=== PATIENT | male | born 1960 | race African-American/Black ===

== ENCOUNTER → 2017-06-02 | Outpatient (CLI) | payer BC ==
--- NOTE | 2017-06-02 12:12 | RAD ---
Exam: Right knee radiograph 06/02/2017 Indication: Right knee pain Comparison: None available Technique: 2 views of the right knee are provided. Note, images are incorrectly labeled left. Findings: There is no acute fracture or dislocation. There is no knee joint effusion. There is patellar enthesopathy. No joint space narrowing. No soft tissue swelling. No osseous erosion or soft tissue gas. Bone mineralization is within normal limits. Impression: No acute fracture or dislocation.
--- NOTE | 2017-06-02 13:09 | RAD ---
ADDENDUM Addendum: Addendum is being made as the technologist reports that the left knee was imaged and the images are correctly labeled as left. The order states left knee to be imaged. Therefore, examination should read left knee radiograph 06/02/2017. Technique should read 2 views of the left knee are provided. DICTATED AND SIGNED BY: KARTHIKEYAN NAIDU MD DATE: 06/02/17 1215 CC: SUNIL SCHULER Exam: Right knee radiograph 06/02/2017 Indication: Right knee pain Comparison: None available Technique: 2 views of the right knee are provided. Note, images are incorrectly labeled left. Findings: There is no acute fracture or dislocation. There is no knee joint effusion. There is patellar enthesopathy. No joint space narrowing. No soft tissue swelling. No osseous erosion or soft tissue gas. Bone mineralization is within normal limits. Impression: No acute fracture or dislocation. DICTATED AND SIGNED BY: KARTHIKEYAN NAIDU MD DATE: 06/02/17 1207 CC: SUNIL SCHULER [facility]
== END | disposition home or self-care (01) ==
LOC: PMG 11:33
PROVIDERS: ATTEND Physician Assistant
DX: M25.562 Pain in left knee (principal); M25.561 Pain in right knee
CPT/HCPCS: 73560

== ENCOUNTER → 2017-07-14 | Outpatient (CLI) | payer BC ==
--- NOTE | 2017-07-14 13:22 | RAD ---
Supine and upright AP views abdomen 07/14/2017 Clinical indication: Abdominal pain. Comparison: Abdominal radiograph 07/10/2006. Findings: There is a nonobstructive bowel gas pattern. No evidence of pneumoperitoneum or portal venous gas. There may be an old nondisplaced fracture of the left superior acetabulum, unchanged since the 2006 examination. Impression: No radiographic evidence of bowel obstruction or pneumoperitoneum.
== END | disposition home or self-care (01) ==
LOC: PMG 09:29
PROVIDERS: ATTEND Physician Assistant
DX: R10.11 Right upper quadrant pain (principal)
CPT/HCPCS: 74021

== ENCOUNTER → 2017-09-09 | Outpatient (CLI) | payer BC ==
--- NOTE | 2017-09-09 16:34 | RAD ---
Right rib series with single view chest 09/09/2017 3:59 PM INDICATION: Pain and right scapular area for one month. COMPARISON: None available TECHNIQUE: Frontal view of the chest is provided. 3 dedicated views of the right ribs are provided. FINDINGS: The cardiomediastinal silhouette is within normal limits. There are no pleural effusions. There is no pulmonary vascular congestion. There is no pneumothorax. The lungs are clear. No significant osseous abnormality is identified. There are 12 paired ribs. No acutely displaced right-sided rib fracture is visualized. IMPRESSION: No acute cardiopulmonary process. There is no acutely displaced right-sided rib fracture. Electronically signed by: Kamini Avila MD (09/09/2017 4:30 PM) [facility]
== END | disposition home or self-care (01) ==
LOC: PMG 15:43
PROVIDERS: ATTEND Physician Assistant
DX: S29.019A Strain of muscle and tendon of unspecified wall of thorax, initial encounter (principal); X58.XXXA Exposure to other specified factors, initial encounter; Y93.89 Activity, other specified; Y92.89 Other specified places as the place of occurrence of the external cause; Y99.8 Other external cause status
CPT/HCPCS: 71101

== ENCOUNTER → 2018-03-16 | Outpatient (CLI) | payer BC ==
--- NOTE | 2018-03-16 12:05 | CARD ---
MR#: [id number] Date of Study: 03/16/2018 Ordering Physician: SABINE LI, Referring Physician: SABINE LI Tech: Susan Shaw RDCS APPROVED REPORT EXAM: Two-dimensional and M-mode echocardiogram with Doppler and color Doppler. Other Information Quality : Fair Technically limited study due to body habitus. INDICATION Hypertension/HCVD 2D DIMENSIONS RVDd3.4 (2.9-3.5cm)Left Atrium(2D)5.0 (1.6-4.0cm) IVSd1.4 (0.7-1.1cm)Aortic Root(2D)3.4 (2.0-3.7cm) LVDd5.5 (3.9-5.9cm)LVOT Diameter2.5 (1.8-2.4cm) PWd2.0 (0.7-1.1cm)LVDs4.3 (2.5-4.0cm) FS (%) 22.2 %SV64.4 ml LVEF(%)45.2 (>50%) Aortic Valve AoV Peak Christian.135.7cm/sAoV VTI24.1cm AO Peak GR.7.4mmHgLVOT Peak Christian.87.9cm/s LVOT VTI 16.23cmAO Mean GR.4mmHg DELICIA (VMAX)3.75re3TZF (VTI)3.19cm2 Mitral Valve MV E Euujoevx06.1cm/sMV DECEL JNAB137ja MV A Hwpncnqf48.5cm/sE/A Ratio0.8 Pulmonary Vein S1 Ldtunxsl13.4cm/sD2 Lieaoxtu62.7cm/s LEFT VENTRICLE The left ventricle is normal size. There is mild to moderate concentric left ventricular hypertrophy. The left ventricular systolic function is normal and the ejection fraction is within normal range. E F 55% There is grossly normal. Tissue Doppler imaging reveals mild left ventricular diastolic dysfunc tion. RIGHT VENTRICLE The right ventricle is normal size. The right ventricular systolic function is normal. ATRIA The left atrium is moderately dilated. The right atrium size is normal. The interatrial septum is int act with no evidence for an atrial septal defect or patent foramen ovale as noted on 2-D or Doppler i keren. AORTIC VALVE The aortic valve is normal in structure and function. Doppler and Color Flow revealed no significant aortic regurgitation. There is no significant aortic valvular stenosis. MITRAL VALVE The mitral valve is normal in structure and function. There is no evidence of mitral valve prolapse. There is no mitral valve stenosis. Doppler and Color Flow revealed no mitral valve regurgitation note d. TRICUSPID VALVE The tricuspid valve is normal in structure and function. Doppler and Color Flow revealed no tricuspid valve regurgitation noted. There is no tricuspid valve stenosis. PULMONIC VALVE The pulmonic valve is not well visualized. Doppler and Color Flow revealed no pulmonic valvular regur gitation. There is no pulmonic valvular stenosis. GREAT VESSELS The aortic root is normal in size. The ascending aorta is mildly dilated at 3.7 cm. The IVC is normal in size and collapses >50% with inspiration. PERICARDIAL EFFUSION There is no evidence of significant pericardial effusion. Critical Notification Critical Value: No <Conclusion> The left ventricular systolic function is normal and the ejection fraction is within normal range. EF 55% There is normal LV segmental wall motion. The ascending aorta is mildly dilated at 3.7 cm. Signed by : Cristiano Rosado, Electronically Approved : 03/16/2018 12:03:54
== END | disposition home or self-care (01) ==
LOC: ECHO 10:27
PROVIDERS: ATTEND Physician Assistant Medical
DX: I11.9 Hypertensive heart disease without heart failure (principal)
CPT/HCPCS: 93306

== ENCOUNTER → 2018-03-16 | Outpatient (CLI) | payer BC ==
--- NOTE | 2018-03-16 18:16 | RAD ---
CHEST PA LATERAL History: SOA. Comparison: September 09, 2017 Heart size: Enlarged, stable. Bebe/mediastinum: Aorta mildly tortuous, appears similar. Lungs: No focal airspace consolidation. Pleura: No evidence of pleural effusion. Pneumothorax: None visualized Bones: Regional skeleton appears grossly intact. Miscellaneous: None Impression: No acute infiltrate identified. Electronically signed by: Eric Avilez MD (03/16/2018 6:12 PM) [id number]
== END | disposition home or self-care (01) ==
LOC: PMG 14:22
PROVIDERS: ATTEND Physician Assistant
DX: I51.7 Cardiomegaly (principal)
CPT/HCPCS: 71046

== ENCOUNTER → 2019-07-14 | Outpatient (CLI) | payer BC ==
--- NOTE | 2019-07-14 10:11 | RAD ---
LEFT FEMUR XRAY INDICATION: Left leg pain COMPARISON: None. FINDINGS: Upper femoral radiographs are underexposed limiting evaluation for fine osseous detail. No displaced fracture or malalignment. Mild right hip arthrosis. Well-corticated ossific density adjacent to the superior, lateral left acetabulum may relate to remote injury or degenerative changes. Mild knee tricompartmental arthrosis. Patellar enthesophytes. Bony mineralization is normal for the patient's age. No significant soft tissue abnormality. No radiopaque foreign body. IMPRESSION: No displaced fracture or malalignment. Electronically signed by: Shayan Krishna MD (07/14/2019 10:08 AM) [id number]
== END ==
LOC: PMG 09:32
PROVIDERS: ATTEND Physician Assistant
DX: M79.652 Pain in left thigh (principal); M17.12 Unilateral primary osteoarthritis, left knee; M16.11 Unilateral primary osteoarthritis, right hip
CPT/HCPCS: 73552

== ENCOUNTER 2020-10-09 09:06 | Emergency (ER) | payer BC ==
[~2020-10-09] VITALS: Ht 180.3 cm; Wt 133.0 kg
[2020-10-09] MEDS ORDERED: DEXAMETHASONE SOD PHOS 10 MG/ML VIAL. IVP ONE (09:30)
[2020-10-09] MEDS ORDERED: KETOROLAC 15 MG/ML VIAL. IVP ONE (09:30)
[2020-10-09] MEDS ORDERED: LABETALOL 20 MG/4 ML DISP.SYRIN. IVP ONE (09:30)
[2020-10-09 10:02] LABS: BASO # 0.1 x10^3/uL (0.0-0.2); BASO % 2 % (0-3); EOS # 0.1 x10^3/uL (0.0-0.7); EOS % 2 % (0-3); HEMATOCRIT 44.9 % (39.0-53.0); LYMPH # 2.5 x10^3/uL (1.0-4.8); LYMPH % 42 % (24-48); MEAN CORPUSCULAR HEMOGLOBIN 33 pg (25-35); MEAN CORPUSCULAR HGB CONC 34 g/dL (31-37); MEAN CORPUSCULAR VOLUME 97 fL (79-100); MONO # 0.4 x10^3/uL (0.0-1.1); MONO % 7 % (0-9); NEUT # 2.8 x10^3uL (1.8-7.7); NEUT % 47 % (31-73); PLATELET COUNT 196 x10^3/uL (140-400); RED BLOOD COUNT 4.64 x10^6/uL (4.30-5.70); RED CELL DISTRIBUTION WIDTH 12.7 % (11.5-14.5)
[2020-10-09 10:08] LABS: CREATININE 1.1 mg/dL (0.7-1.3); GFR 83.2; POTASSIUM 4.5 mmol/L (3.5-5.1)
[2020-10-09 10:14] LABS: ALBUMIN 4.1 g/dL (3.4-5.0); ALBUMIN/GLOBULIN RATIO 1.1 (1.0-1.7); TOTAL BILIRUBIN 1.1 mg/dL (0.2-1.0); URIC ACID 7.7 mg/dL (3.5-7.2)
--- NOTE | 2020-10-09 10:24 | RAD ---
EXAM: Left foot, 3 views. HISTORY: Pain. Gout. COMPARISON: None. FINDINGS: 3 views of the left foot are obtained. There is no acute fracture, dislocation or subluxati on. There is mild degenerative spurring involving the first metatarsal phalangeal joint. There is sli ght joint space narrowing involving the second through fourth distal tibial joints. No osseous erosio n or soft tissue calcification is seen. There is dorsal forefoot soft tissue swelling. There is a cor ticated ossicle along the anterior talus, likely due to sequela of remote injury. There is a tiny elza ntar spur. IMPRESSION: 1. No acute osseous finding. 2. Dorsal forefoot soft tissue swelling. Electronically signed by: Gerri Jones MD (10/09/2020 10:21 AM) [id number]
--- NOTE | 2020-10-09 10:37 | PHYS DOC ---
Past History Past Medical History: High Cholesterol, Hypertension Additional Past Medical Histor: gout Past Surgical History: No Surgical History Smoking: Non-smoker Alcohol Use: Occasionally Drug Use: None General Adult EDM: Chief Complaint: FOOT INJURY PAIN HPI: HPI: Patient is a 60 year old male who presents with left foot pain at first tarsal- metatarsal joint. Pain started a week ago after golfing. Pt reported joint was shiny and swollen but has since decreased. Sitting still improves pain. Nothing worsens. Pain 6/10 and is constant. Patient also presents with significantly elevated hypertension which was discovered upon visiting urgent care clinic for foot pain. Pt does have history of hypertension for the last year and a half, but has not been taking medication. Review of Systems: Review of Systems: Constitutional: Denies fever or chills Eyes: Denies redness or eye pain HENT: Denies nasal congestion or sore throat Respiratory: Denies cough or shortness of breath Cardiovascular: Denies chest pain or palpitations GI: Denies abdominal pain, nausea, or vomiting : Denies dysuria or hematuria Musculoskeletal: Denies back pain or joint pain Integument: Denies rash or skin lesions Neurologic: Denies headache, focal weakness or sensory changes Complete systems were reviewed and found to be within normal limits, except as documented in this note. Current Medications: Current Meds: Current Medications Medications (Trade) Dose Ordered Sig/Tan Start Time Stop Time Status Last Admin Dose Admin Dexamethasone Sodium Phosphate (Decadron) 10 mg 1X ONCE 10/09/20 09:30 10/09/20 09:31 DC Ketorolac Tromethamine (Toradol 15mg Vial) 15 mg 1X ONCE 10/09/20 09:30 10/09/20 09:31 DC Labetalol HCl (Normodyne) 20 mg 1X ONCE 10/09/20 09:30 10/09/20 09:31 DC Allergies: Allergies: Allergies Coded Allergies Type Severity Reaction Last Updated Verified No Known Drug Allergies 10/09/20 No Physical Exam: PE: Constitutional: Well developed, well nourished, no acute distress, non-toxic appearance HENT: Normocephalic, atraumatic Eyes: PERRL, EOMI, conjunctiva normal, no discharge Neck: Normal range of motion, no tenderness, supple Lungs & Thorax: No respiratory distress, equal chest rise and fall Cardiovascular: RRR, no murmurs Abdomen: Soft, no tenderness Skin: Warm, dry, no erythema, no rash Back: No tenderness, no CVA tenderness Extremities: ROM intact, 1+ edema b/l lower extremities, erythema and swelling on left first tarsal-metatarsal joint Neurologic: Alert and oriented X 3, normal motor function, normal sensory function, no focal deficits noted Psychologic: Affect normal, judgment normal Current Patient Data: Vital Signs: Vital Signs Date Time Temp Pulse Resp B/P (MAP) Pulse Ox O2 Delivery O2 Flow Rate FiO2 10/09/20 09:15 97.8 73 248/125 97 EKG: EKG: Time:9:43 Sinus rhythm at 68bpm LVH with repolarization abnormality, t wave inversion III and aVF and V6 QT: 390ms QTc: 419ms Radiology/Procedures: Radiology/Procedures: PROCEDURE: FOOT LEFT 3V EXAM: Left foot, 3 views. HISTORY: Pain. Gout. COMPARISON: None. FINDINGS: 3 views of the left foot are obtained. There is no acute fracture, dislocation or subluxation. There is mild degenerative spurring involving the first metatarsal phalangeal joint. There is slight joint space narrowing involving the second through fourth distal tibial joints. No osseous erosion or soft tissue calcification is seen. There is dorsal forefoot soft tissue swelling. There is a corticated ossicle along the anterior talus, likely due to sequela of remote injury. There is a tiny plantar spur. IMPRESSION: 1. No acute osseous finding. 2. Dorsal forefoot soft tissue swelling. Electronically signed by: Gerri Jones MD (10/09/2020 10:21 AM) [id number][] Heart Score: C/O Chest Pain: N/A Course & Med Decision Making: Course & Med Decision Making 60 yo male reported to urgent care clinic for foot pain due to PCP not having any appointments available. Urgent care discovered significantly elevated BP and sent pt to ED. Pt has history of gout. Onset of pain was after a round of golf wearing unlaced shoes a week ago. Pt reports erythema and swelling have improved since onset. Considered stress fracture and osteoarthritis for foot pain. Ordered XR for left foot. Imaging showed soft tissue swelling, osteoarthritis and no fractures. Ordered CBC w/diff and chemistry for HTN to rule out end organ damage. Labs showed elevated uric acid but no elevated indicators of end organ damage. Gave prescription for 14 day supply of amlodipine, valsartan/HCT, and carvedilol. Patient stable for discharge with outpatient follow-up with PCP. Discussed findings and plan with patient and spouse, who acknowledge understanding and agreement. Lucien Disclaimer: Lucien Disclaimer: This electronic medical record was generated, in whole or in part, using a voice recognition dictation system. Departure Departure: Impression: Primary Impression: Hypertensive urgency Additional Impression: Gout attack Qualified Codes: M10.9 - Gout, unspecified Disposition: HOME / SELF CARE / HOMELESS Condition: STABLE Referrals: SUNIL SCHULER (PCP) Patient Instructions: Gout, Aose-pi-Adfq, Hypertension, Qpbd-zy-Bvdo Additional Instructions: Use post op shoe for comfort. May also take over the counter Tylenol as needed for pain. Please call and make an appointment to follow with your provider regarding your prescription refills. Scripts Colchicine (COLCRYS) 0.6 Mg Tablet 1 TAB PO DAILY for gout pain, #10 TAB 0 Refills Prov: SABINO BURNS DO 10/09/20 Valsartan/Hydrochlorothiazide (DIOVAN HCT 320-25 MG TABLET) 1 Each Tablet 1 TAB PO DAILY for HTN, #14 TAB Prov: SABINO BURNS DO 10/09/20 Carvedilol (COREG ) 6.25 Mg Tablet 6.25 MG PO BIDWMEALS for CARDIAC, #28 TAB Prov: SABINO BURNS DO 10/09/20 Amlodipine Besylate (AMLODIPINE BESYLATE) 10 Mg Tablet 1 TAB PO DAILY for HTN, #14 TAB Prov: SABINO BURNS DO 10/09/20 Critical Care Time Critical care time was 30 minutes which includes time at bedside, spent in discussion of patient's care with specialists and/or family members, with interpretation of laboratory and/or radiological studies and is exclusive of procedures. SABINO BURNS DO Oct 09, 2020 10:37
[2020-10-09] MEDS ORDERED: AMLO-187 PO (10:41)
[2020-10-09] MEDS ORDERED: COLC0.6T34 PO (10:41)
[2020-10-09] MEDS ORDERED: CARV6.25 PO (10:41)
[2020-10-09] MEDS ORDERED: VALS1TAB23 PO (10:41)
[2020-10-09 10:50] VITALS: BP 221/117
--- NOTE | 2020-10-09 18:52 | EKG ---
[facility] [address] [place] [address] Test Date: 2020-10-09 Test Time: 09:43:53 Pat Name: SHELBY BRISENO Department: Room: Gender: M Occupational Therapy Director: [facility] : 1960 Requested By: SABINO BURNS Order Number: [id number] Reading MD: Measurements Intervals Gay Rate: 68 P: 0 NE: 162 QRS: 71 QRSD: 88 T: -24 QT: 390 QTc: 419 Interpretive Statements SINUS RHYTHM LVH WITH REPOLARIZATION ABNORMALITY ABNORMAL ECG RI6.02 No previous ECG available for comparison
== END 2020-10-09 10:55 | disposition home or self-care (01) ==
LOC: ER 09:06
DX: I16.0 Hypertensive urgency (principal); M10.9 Gout, unspecified; M79.672 Pain in left foot; E78.00 Pure hypercholesterolemia, unspecified; I10 Essential (primary) hypertension
CPT/HCPCS: 36415; 73630; 80053; 83735; 84484; 84550; 85025; 93005; 96374; 96375; 99285; J1100; J1885; J3490